=== PATIENT | female | born 1965 | race Caucasian/White ===

== ENCOUNTER → 2016-05-27 | Outpatient (CLI) | payer MEDICAID ==
--- NOTE | 2016-05-27 11:56 | MA ---
Screening Digital Mammogram With iCAD - May 27, 2016 Indication: Routine screening. Breast reduction surgery in 1984. Technique: Standard cephalocaudal and mediolateral oblique projections were obtained. This examinat ion was processed by the [employer] computer-aided detection system. Comparison: No prior examinations for comparison. Breast density: Type B. Findings: CAD was reviewed. There are benign symmetric linear postsurgical scars from previous breast reduction surgery. No mass or malignant-type calcification. Impression: Benign baseline mammograms. BI-RADS 2: Benign finding. Recommendation: Routine screening is recommended in one year. [facility] will send a result letter to the patient. Negative mammography should not preclude additional workup of a clinically suspicious finding. The patient's information is entered into a reminder system with a target due date for her next mammo gram.
== END ==
LOC: BMCIMAGING 10:37
PROVIDERS: ATTEND Internal Medicine
DX: Z12.31 Encounter for screening mammogram for malignant neoplasm of breast (principal)
CPT/HCPCS: G0202